=== PATIENT | female | born 1995 | race Caucasian/White ===

== ENCOUNTER 2017-07-31 08:30 | Emergency (ER) | payer MEDICAID, OTHER ==
[~2017-07-31] VITALS: Ht 162.6 cm; Wt 88.0 kg
[~2017-07-31 08:30] MED LIST: ALBU8HFA PO; PRED50TA PO
[2017-07-31 08:33] VITALS: BP 120/91
[2017-07-31] MEDS ORDERED: ALBU6.7H INH (09:00)
[2017-07-31] MEDS ORDERED: CEPH-572 PO (09:00)
[2017-07-31] MEDS ORDERED: LIDO20SO16 PO (09:00)
== END 2017-07-31 09:00 | disposition home or self-care (01) ==
LOC: ER 08:30
DX: J02.0 Streptococcal pharyngitis (principal); J98.01 Acute bronchospasm; F17.200 Nicotine dependence, unspecified, uncomplicated; J45.909 Unspecified asthma, uncomplicated; F12.10 Cannabis abuse, uncomplicated; Z88.0 Allergy status to penicillin; Z88.2 Allergy status to sulfonamides
CPT/HCPCS: 99283

== ENCOUNTER 2017-08-18 15:41 | Emergency (ER) | payer MEDICAID, OTHER ==
[~2017-08-18] VITALS: Ht 162.6 cm; Wt 88.0 kg
[~2017-08-18 15:41] MED LIST changes: +ALBU6.7H INH; +LIDO20SO16 PO
[2017-08-18 15:53] VITALS: BP 129/82
[2017-08-18] MEDS ORDERED: dexamethasone sod phosphate 10mg/ml inj PO STA (16:41)
== END 2017-08-18 17:22 | disposition home or self-care (01) ==
LOC: ER 15:42
DX: J02.9 Acute pharyngitis, unspecified (principal); J35.1 Hypertrophy of tonsils; J45.909 Unspecified asthma, uncomplicated; F12.90 Cannabis use, unspecified, uncomplicated; Z88.1 Allergy status to other antibiotic agents
CPT/HCPCS: 87081; 87880; 99284; J1100

== ENCOUNTER 2018-05-18 00:04 | Emergency (ER) | payer OTHER ==
[~2018-05-18] VITALS: Ht 162.6 cm; Wt 72.2 kg
[2018-05-18] MEDS ORDERED: predniSONE 20 mg tablet PO ONE (00:55)
[2018-05-18] MEDS ORDERED: AZIT-72 PO (00:57)
[2018-05-18] MEDS ORDERED: PRED20TA PO (00:57)
[2018-05-18 01:20] VITALS: BP 134/86
== END 2018-05-18 01:21 | disposition home or self-care (01) ==
LOC: ER 00:05
DX: J20.9 Acute bronchitis, unspecified (principal); J45.909 Unspecified asthma, uncomplicated; F12.90 Cannabis use, unspecified, uncomplicated; Z87.891 Personal history of nicotine dependence; Z88.2 Allergy status to sulfonamides; Z88.1 Allergy status to other antibiotic agents; Z79.899 Other long term (current) drug therapy
CPT/HCPCS: 99283; J7512

== ENCOUNTER 2019-11-01 21:44 | Emergency (ER) | payer BC ==
[~2019-11-01] VITALS: Ht 162.6 cm; Wt 61.8 kg
[~2019-11-01 21:44] MED LIST changes: -ALBU6.7H INH; +ALBU6.7H9 INH
[2019-11-01] MEDS ORDERED: ALBU8.5H8 IH (22:29)
[2019-11-01] MEDS ORDERED: PRED20TA PO (22:29)
[2019-11-01 23:35] VITALS: BP 108/65
== END 2019-11-01 23:37 | disposition home or self-care (01) ==
LOC: ER 21:44
DX: R06.02 Shortness of breath (principal); Z20.828 Contact with and (suspected) exposure to other viral communicable diseases; R05 Cough; J45.909 Unspecified asthma, uncomplicated; Z72.89 Other problems related to lifestyle; F12.90 Cannabis use, unspecified, uncomplicated; Z88.1 Allergy status to other antibiotic agents; Z88.2 Allergy status to sulfonamides; Z79.899 Other long term (current) drug therapy
CPT/HCPCS: 36415; 87635; 93005; 99284